=== PATIENT | female | born 2000 | race African-American/Black ===

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

== ENCOUNTER 2019-06-06 21:07 | Emergency (ER) | payer MEDICAID, SELFPAY ==
[2019-06-06 22:15] LABS: ALT (SGPT) 16 U/L (8-55); AST (SGOT) 16 U/L (5-30); Albumin 3.7 g/dL (3.5-5.0); Alkaline Phosphatase 60 U/L (40-150); Anion Gap 9 mmol/L (10-20); BUN (Urea Nitrogen) 10 mg/dL (8.4-21.0); Bilirubin, Total Less than 0.2 mg/dL (0.2-1.2); Calc. Creatinine Clearance 0 mL/min (70-130); Calcium 8.9 mg/dL (7.8-10.44); Carbon Dioxide 23 mmol/L (22-29); Chloride 107 mmol/L (98-107); Estimated GFR-MDRD Greater than 90; Globulin 3.8 g/dL (2.4-3.5); Glucose 70 mg/dL (70-105); Potassium 4.1 mmol/L (3.5-5.1); Protein, Total 7.5 g/dL (6.0-8.3); Sodium 135 mmol/L (136-145)
[2019-06-06] MEDS ORDERED: Acetaminophen 500 MG TAB ONE (22:16)
[2019-06-06 22:23] LABS: #Eosinphils 0.9 thou/uL (0.0-0.7); #Lymphocytes 3.3 thou/uL (1.20-3.40); #Monocytes 1.4 thou/uL (0.11-0.59); #Neutrophils 6.9 thou/uL (1.40-6.50); %Basophils 0.3 % (0.0-1.0); %Eosinophils 7.2 % (0.0-10.0); %Lymphocytes 26.5 % (28.0-48.0); %Monocytes 11.4 % (0.0-4.0); %Neutrophils 54.6 % (31.0-61.0); Anisocytosis SLIGHT = 6-15 cells (100X) (0-5/hpf); Hemoglobin 9.8 g/dL (12.0-16.0); MDiff Complete? YES; Mean Corpuscular HGB CONC 34.1 g/dL (32.0-36.0); Mean Corpuscular Volume 70.2 fL (78.0-98.0); Platelet Count 346 thou/uL (130-400); Platelet Morphology Comment Appears Adequate; RBC Distribution Width 21.6 % (11.5-14.5); Red Blood Cell (RBC) Count 4.09 mill/uL (4.00-5.20); Target Cells SLIGHT = 2-5 cells (100X) (0-1/hpf); White Blood Cell (WBC) Count 12.6 thou/uL (4.8-10.8)
--- NOTE | 2019-06-06 23:20 | ULT ---
PELVIC ULTRASOUND WITH DOPPLER: 06/06/19 HISTORY: Vaginal bleeding. FINDINGS: A single live intrauterine gestation is seen with measurements corresponding to an estimated gestatio nal age of 13 weeks and YVON at 12/12/2019. measurements are as follows: BPD 2.09 cm 13 weeks, 3 days HC 7.59 cm 13 weeks, 1 day AC 6.42 cm 13 weeks, 1 day FL 0.85 cm 12 weeks, 4 days heart rate measures 162 beats per minute. Amniotic fluid appears adequate. The right ovary is n ot visualized. The left ovary appears normal. No free fluid is seen. No subchorionic hemorrhage is se en. IMPRESSION: Single live IUP of 13 weeks estimated gestational age and YVON at 12/12/2019. POS: [facility]
== END 2019-06-06 23:42 | disposition home or self-care (01) ==
LOC: ERS 21:07
DX: O26.851 Spotting complicating pregnancy, first trimester (principal); O99.511 Diseases of the respiratory system complicating pregnancy, first trimester; J06.9 Acute upper respiratory infection, unspecified; O99.341 Other mental disorders complicating pregnancy, first trimester; F41.9 Anxiety disorder, unspecified; F90.9 Attention-deficit hyperactivity disorder, unspecified type; F31.9 Bipolar disorder, unspecified; Z87.891 Personal history of nicotine dependence; Z3A.13 13 weeks gestation of pregnancy
CPT/HCPCS: 36415; 76856; 80053; 84702; 85025; 86900; 86901

== ENCOUNTER 2019-07-26 20:51 | Emergency (ER) | payer MEDICAID, OTHER ==
[2019-07-26 21:28] LABS: #Basophils 0.1 thou/uL (0.0-0.2); #Lymphocytes 3.6 thou/uL (1.20-3.40); #Monocytes 1.1 thou/uL (0.11-0.59); #Neutrophils 7.1 thou/uL (1.40-6.50); %Basophils 0.7 % (0.0-1.0); %Eosinophils 7.8 % (0.0-10.0); %Lymphocytes 27.9 % (28.0-48.0); %Monocytes 8.6 % (0.0-4.0); Hemoglobin 9.6 g/dL (12.0-16.0); Mean Corpuscular HGB CONC 34.4 g/dL (32.0-36.0); Mean Corpuscular Hemoglobin 24.3 pg (25.0-35.0); Mean Corpuscular Volume 70.7 fL (78.0-98.0); Mean Platelet Volume 9.3 fL (7.4-10.4); Platelet Count 332 thou/uL (130-400); RBC Distribution Width 16.7 % (11.5-14.5); Red Blood Cell (RBC) Count 3.95 mill/uL (4.00-5.20)
[2019-07-26 21:33] LABS: BHCG - Serum POSITIVE (NEGATIVE); Pregs Control Background? CLEAR/WHITE (CLR/WHITE); Pregs Control Bar Appear? YES (CONTROL BAR)
[2019-07-26 21:53] LABS: ALT (SGPT) 11 U/L (8-55); AST (SGOT) 14 U/L (5-30); Albumin 3.7 g/dL (3.5-5.0); Alkaline Phosphatase 55 U/L (40-100); Anion Gap 12 mmol/L (10-20); BUN (Urea Nitrogen) 10 mg/dL (8.4-21.0); Bilirubin, Total Less than 0.2 mg/dL (0.2-1.2); Calc. Creatinine Clearance 0 mL/min (70-130); Calcium 9.3 mg/dL (7.8-10.44); Carbon Dioxide 21 mmol/L (22-29); Chloride 106 mmol/L (98-107); Estimated GFR-MDRD Greater than 90; Glucose 64 mg/dL (70-105); Potassium 3.4 mmol/L (3.5-5.1); Protein, Total 7.7 g/dL (6.0-8.3); Sodium 136 mmol/L (136-145)
[2019-07-26 22:05] LABS: Pregnancy Test - Urine (BHCG) POSITIVE (Negative); Pregu Control Background? CLEAR/WHITE (CLR/WHITE); Pregu Control Bar Appear? YES (CONTROL BAR)
[2019-07-26 22:09] LABS: Bilirubin Negative (Negative); Blood, Urine Negative (Negative); Clarity Clear (Clear); Glucose, Urine (Dipstick) Normal (Negative); Leukocyte 250 Leu/uL (Negative); Mucous/LPF 1+ LPF (<2+); Nitrite Negative (Negative); Protein, Urine (Dipstick) 20 mg/dL (Neg-Trace); Urobilinogen Normal mg/dL (Less than 2)
[2019-07-26 22:14] LABS: Bacteria/HPF 3+ HPF (None Seen)
== END 2019-07-26 23:37 | disposition home or self-care (01) ==
LOC: ERS 20:51
DX: O23.12 Infections of bladder in pregnancy, second trimester (principal); Z3A.19 19 weeks gestation of pregnancy; O99.342 Other mental disorders complicating pregnancy, second trimester; O99.512 Diseases of the respiratory system complicating pregnancy, second trimester; J45.909 Unspecified asthma, uncomplicated; F41.9 Anxiety disorder, unspecified; F90.9 Attention-deficit hyperactivity disorder, unspecified type; F31.9 Bipolar disorder, unspecified; Z87.891 Personal history of nicotine dependence
CPT/HCPCS: 36415; 80053; 81003; 81015; 81025; 84703; 85025; 87077; 87086; 99284